=== PATIENT | male | born 1960 | race Two or more races ===

== ENCOUNTER 2017-05-27 23:48 | Emergency (ER) | payer OTHER, MEDICAID ==
[~2017-05-27] VITALS: Ht 167.6 cm; Wt 81.8 kg
[~2017-05-27 23:48] MED LIST: AMLO10TA PO; ASPI-1265 PO; FERR325T32 PO; HYDR-3686 PO; LAMO100T2 PO; LISI-645 PO; MULT-1074 PO; PANT40TA4 PO; POTA10TA19 PO; TRAM50TA2 PO
[2017-05-28 01:25] LABS: PARTIAL THROMBOPLASTIN TIME 27 SECONDS (22-32); PROTHROMBIN TIME 10.8 SECONDS (9.0-12.0)
[2017-05-28 01:29] LABS: ALANINE AMINOTRANSFERASE 63 U/L (12-78); ALBUMIN 3.7 G/DL (3.4-5.0); ALBUMIN/GLOBULIN RATIO 0.9 (1.1-1.5); ALKALINE PHOSPHATASE 87 IU/L (46-116); ANION GAP 10 (8-16); ASPARTATE AMINO TRANSFERASE 87 U/L (10-37); BILIRUBIN,TOTAL 0.5 MG/DL (0.1-1.0); BLOOD UREA NITROGEN 10 MG/DL (7-18); BUN/CREATININE RATIO 13.5 (5.4-32.0); CALCIUM 8.4 MG/DL (8.5-10.1); CHLORIDE 107 MMOL/L (99-107); CREATININE 0.74 MG/DL (0.60-1.10); GLUCOSE 84 MG/DL (70-104); POTASSIUM 3.3 MMOL/L (3.5-5.1); SODIUM 145 MMOL/L (135-145); TOTAL PROTEIN 7.8 G/DL (6.4-8.2); eGFR > 90 ML/MIN
[2017-05-28 01:43] LABS: BASOPHILS % (AUTO) 0.7 % (0-1); EOSINOPHILS # (AUTO) 0.3 X10'3 (0-0.9); EOSINOPHILS % (AUTO) 6.6 % (0-6); HEMATOCRIT 44.4 % (42.0-52.0); HEMOGLOBIN 15.1 g/dl (14.0-17.9); LYMPHOCYTES # (AUTO) 2.7 X10'3 (1.1-4.8); LYMPHOCYTES % (AUTO) 51.6 % (21-51); MEAN CORPUSCULAR HEMOGLOBIN 28.3 PG (27.0-31.0); MEAN CORPUSCULAR HGB CONC 33.9 % (33.0-36.5); MEAN CORPUSCULAR VOLUME 83.3 FL (78-98); MEAN PLATELET VOLUME 8.2 FL (7.4-10.4); MONOCYTES # (AUTO) 0.3 X10'3 (0-0.9); MONOCYTES % (AUTO) 6.5 % (2-12); NEUTROPHILS # (AUTO) 1.8 X10'3 (1.8-7.7); NEUTROPHILS % (AUTO) 34.6 % (42-75); PLATELET COUNT 245 X10'3 (140-440); RED BLOOD COUNT 5.33 X10'6 (4.70-6.10); RED CELL DISTRIBUTION WIDTH 15.2 % (11.5-14.5); WHITE BLOOD COUNT 5.1 X10'3 (4.5-11.0)
[2017-05-28] MEDS ORDERED: ketorolac trometh. 30mg/ml inj. IM ONE (02:15)
[2017-05-28 02:20] VITALS: BP 118/85
== END 2017-05-28 02:22 | disposition home or self-care (01) ==
LOC: ER 23:49
DX: R07.89 Other chest pain (principal); J06.9 Acute upper respiratory infection, unspecified; F12.10 Cannabis abuse, uncomplicated; I25.10 Atherosclerotic heart disease of native coronary artery without angina pectoris; I10 Essential (primary) hypertension; I25.2 Old myocardial infarction; Z79.899 Other long term (current) drug therapy; Z79.82 Long term (current) use of aspirin; Z85.51 Personal history of malignant neoplasm of bladder
CPT/HCPCS: 36415; 71045; 80053; 84484; 85025; 85610; 85730; 93005; 96372; 99285; J1885

== ENCOUNTER 2017-06-18 19:58 | Emergency (ER) | payer OTHER, MEDICAID ==
[~2017-06-18] VITALS: Ht 5619.3 cm; Wt 77.3 kg
[2017-06-18] MEDS ORDERED: magnesium oxide 400mg tablet PO ONE (20:10)
[2017-06-18] MEDS ORDERED: thiamine 100mg tablet PO ONE (20:10)
[2017-06-18] MEDS ORDERED: normal saline 1000ML IV soln IVB ONE (20:10)
[2017-06-18 20:35] LABS: BASOPHILS % (AUTO) 0.6 % (0-1); EOSINOPHILS # (AUTO) 0.3 X10'3 (0-0.9); EOSINOPHILS % (AUTO) 6.3 % (0-6); HEMATOCRIT 43.5 % (42.0-52.0); HEMOGLOBIN 14.8 g/dl (14.0-17.9); LYMPHOCYTES % (AUTO) 38.9 % (21-51); MEAN CORPUSCULAR HEMOGLOBIN 28.1 PG (27.0-31.0); MEAN CORPUSCULAR HGB CONC 34.1 % (33.0-36.5); MEAN CORPUSCULAR VOLUME 82.4 FL (78-98); MEAN PLATELET VOLUME 8.1 FL (7.4-10.4); MONOCYTES # (AUTO) 0.3 X10'3 (0-0.9); MONOCYTES % (AUTO) 5.6 % (2-12); NEUTROPHILS # (AUTO) 2.5 X10'3 (1.8-7.7); NEUTROPHILS % (AUTO) 48.6 % (42-75); PLATELET COUNT 239 X10'3 (140-440); RED BLOOD COUNT 5.27 X10'6 (4.70-6.10); RED CELL DISTRIBUTION WIDTH 15.6 % (11.5-14.5); WHITE BLOOD COUNT 5.2 X10'3 (4.5-11.0)
[2017-06-18 20:41] LABS: CLARITY,URINE CLEAR (Clear); COLOR,URINE STRAW (Yellow); GLUCOSE, URINE NEGATIVE (Neg); KETONES,URINE NEGATIVE (Neg); LEUKOCYTE ESTERASE ,URINE NEGATIVE (Neg); NITRITES, URINE NEGATIVE (Neg); OCCULT BLOOD,URINE TRACE-INTACT (Neg); PROTEIN,URINE NEGATIVE (Neg); UROBILINOGEN,URINE 0.2 E.U/dL (0.2-1.0)
[2017-06-18 20:42] LABS: UA COLLECTION TYPE URINAL
[2017-06-18 20:47] LABS: PROTHROMBIN TIME 10.7 SECONDS (9.0-12.0)
[2017-06-18 20:48] LABS: BACTERIA,URINE NONE SEEN /HPF (Neg); RBC,URINE 0-2 /HPF (0-2); SQUAMOUS EPITHELIAL CELL,UR FEW /LPF (FEW); WBC,URINE 0-4 /HPF (0-4)
[2017-06-18 20:52] LABS: URINE AMPHETAMINE SCREEN NEGATIVE (Neg); URINE BARBITUATE SCREEN NEGATIVE (Neg); URINE BENZODIAZEPINES SCREEN NEGATIVE (Neg); URINE CANNABINOID SCREEN NEGATIVE (Neg); URINE COCAINE SCREEN NEGATIVE (Neg); URINE METHADONE SCREEN NEGATIVE (Neg); URINE OPIATE SCREEN NEGATIVE (Neg); URINE PHENCYCLIDINE SCREEN NEGATIVE (Neg)
[2017-06-18 20:54] LABS: ALANINE AMINOTRANSFERASE 72 U/L (12-78); ALBUMIN/GLOBULIN RATIO 0.9 (1.1-1.5); ALKALINE PHOSPHATASE 85 IU/L (46-116); ANION GAP 10 (8-16); ASPARTATE AMINO TRANSFERASE 81 U/L (10-37); BILIRUBIN,TOTAL 0.4 MG/DL (0.1-1.0); BLOOD UREA NITROGEN 12 MG/DL (7-18); CALCIUM 8.4 MG/DL (8.5-10.1); CHLORIDE 112 MMOL/L (99-107); GLUCOSE 98 MG/DL (70-104); POTASSIUM 3.5 MMOL/L (3.5-5.1); SODIUM 150 MMOL/L (135-145); TOTAL CARBON DIOXIDE 27.8 MMOL/L (24-32); TOTAL PROTEIN 8.3 G/DL (6.4-8.2); eGFR > 90 ML/MIN
[2017-06-18 21:16] LABS: ETHANOL 0.302 GM/DL (0.0-0.010)
[2017-06-19 01:29] VITALS: BP 157/105
== END 2017-06-19 02:14 | disposition home or self-care (01) ==
LOC: ER 19:58
DX: F10.129 Alcohol abuse with intoxication, unspecified (principal); R31.9 Hematuria, unspecified; R79.1 Abnormal coagulation profile; I25.2 Old myocardial infarction; I25.10 Atherosclerotic heart disease of native coronary artery without angina pectoris; I10 Essential (primary) hypertension; F12.10 Cannabis abuse, uncomplicated; Z85.51 Personal history of malignant neoplasm of bladder; Z79.01 Long term (current) use of anticoagulants; Z79.82 Long term (current) use of aspirin
CPT/HCPCS: 36415; 80053; 80305; 80320; 81001; 85025; 85610; 99284; J7030